=== PATIENT | male | born 1955 | race Hispanic/Latino ===

== ENCOUNTER 2019-05-31 09:47 | Inpatient (IN) | payer OTHER ==
[2019-05-31 10:39] LABS: #Basophils 0.1 thou/uL (0.0-0.2); #Eosinphils 0.3 thou/uL (0.0-0.7); #Lymphocytes 2.5 thou/uL (1.20-3.40); %Basophils 0.8 % (0.0-1.0); %Eosinophils 4.1 % (0.0-10.0); %Lymphocytes 31.5 % (21.0-51.0); %Monocytes 12.1 % (0.0-10.0); %Neutrophils 51.4 % (42.0-75.0); Hemoglobin 17.5 g/dL (14.0-18.0); Mean Corpuscular HGB CONC 34.4 g/dL (32.0-36.0); Mean Corpuscular Hemoglobin 34.4 pg (27.0-31.0); Mean Corpuscular Volume 99.9 fL (78.0-98.0); Mean Platelet Volume 6.8 fL (7.4-10.4); Platelet Count 339 thou/uL (130-400); RBC Distribution Width 11.8 % (11.5-14.5); Red Blood Cell (RBC) Count 5.08 mill/uL (4.70-6.10); White Blood Cell (WBC) Count 7.8 thou/uL (4.8-10.8)
[2019-05-31] MEDS ORDERED: Ondansetron PF 4 MG/2 ML Vial ONE (10:41)
[2019-05-31] MEDS ORDERED: Dexamethasone 20 MG/5 ML VIAL ONE (10:41)
[2019-05-31] MEDS ORDERED: PROPOFOL 200 MG/20 ML VIAL ONE (10:41)
[2019-05-31] MEDS ORDERED: Lidocaine 1% PF 5 ML VIAL ONE (10:41)
--- NOTE | 2019-05-31 10:47 | RAD ---
EXAM: XR Finger(s) Rt Min 2 View PROVIDED CLINICAL HISTORY: Pain, recent history of foreign body COMPARISON: None FINDINGS: There is soft tissue gas noted involving the dorsal aspect of the long digit distally in the region o f the nailbed. There is multifocal lucency involving the terminal tuft of the long digit. Some of this lucency appears somewhat linear in nature. Joint spaces appear preserved. Alignment appears nathen omic. IMPRESSION: Soft tissue gas and lytic changes involving the long digit distal phalanx region suspicious for soft tissue infection and osteomyelitis respectively. Given the somewhat linear nature of lucency, component of fracture cannot be excluded.
[2019-05-31 11:07] LABS: ALT (SGPT) 46 U/L (8-55); AST (SGOT) 45 U/L (5-34); Albumin 4.7 g/dL (3.4-4.8); Alkaline Phosphatase 84 U/L (40-110); Anion Gap 17 mmol/L (10-20); BUN (Urea Nitrogen) 9 mg/dL (8.4-25.7); Bilirubin, Total 0.6 mg/dL (0.2-1.2); Calc. Creatinine Clearance 0 mL/min (70-130); Calcium 9.6 mg/dL (7.8-10.44); Carbon Dioxide 21 mmol/L (23-31); Chloride 102 mmol/L (98-107); Estimated GFR-MDRD Greater than 90; Globulin 3.3 g/dL (2.4-3.5); Glucose 123 mg/dL (80-115); Potassium 4.6 mmol/L (3.5-5.1); Sodium 135 mmol/L (136-145)
[2019-05-31] MEDS ORDERED: Cefepime 2 GM VIAL ONE (11:07)
[2019-05-31] MEDS ORDERED: Adacel (T-DAP) 0.5 ML SYRINGE ONE (11:27)
[2019-05-31] MEDS ORDERED: Fentanyl 100 MCG/2 ML VIAL SLOW IVP PRN (13:37)
[2019-05-31] MEDS ORDERED: HYDROcodone/Acetaminophen 5/325 mg Tablet PO PRN (13:37)
[2019-05-31] MEDS ORDERED: traMADol HCl 50 MG TAB PO PRN (13:37)
[2019-05-31] MEDS ORDERED: Milk Of Magnesia 30 ML UDCUP PO PRN (13:37)
[2019-05-31] MEDS ORDERED: Ondansetron PF 4 MG/2 ML Vial IV PRN (13:37)
[2019-05-31] MEDS ORDERED: Communication Order-Pharmacy FS PRN ×2 (13:45→14:06)
[2019-05-31] MEDS ORDERED: Fentanyl 100 MCG/2 ML VIAL ONE (14:00)
[2019-05-31] MEDS ORDERED: Bupivacaine PF 0.5% 30 ML VIAL ONE (14:26)
[2019-05-31] MEDS ORDERED: Midazolam HCl 2 mg/2 ml Vial ONE (14:41)
[2019-05-31] MEDS ORDERED: Promethazine HCl 25 MG/ML VIAL SLOW IVP PRN (15:03)
[2019-05-31] MEDS ORDERED: Ondansetron HCl/PF 4 MG/2 ML Vial IVP PRN (15:03)
[2019-05-31] MEDS ORDERED: Promethazine HCl 25 MG/ML VIAL IM PRN (15:03)
--- NOTE | 2019-05-31 16:27 | CON ---
DATE OF CONSULTATION: CHIEF COMPLAINT: Right finger infection. HISTORY OF PRESENT ILLNESS: Mr. Alfaro is a 63-year-old male, who has developed an infection of his right long digit. He had a splinter in the end of the digit. This has progressively worsened. He has had infection for two weeks now. His tried to remove the splinter. He has not been on antibiotics. He presented for evaluation today. He has been having possible low-grade fevers at home, although he has not checked his temperature. Orthopedics was consulted after x-rays demonstrated subcutaneous gas and lytic areas of the distal phalanx. PAST MEDICAL HISTORY: The patient denies having diabetes. He denies active medical problems. PAST SURGICAL HISTORY: Previous knee surgery and cholecystectomy. SOCIAL HISTORY: The patient drinks alcohol every day. He also uses cigarettes every day. He denies drug use. REVIEW OF SYSTEMS: Positive for mild hand pain. Otherwise, negative 10-point review of systems. ALLERGIES: NO KNOWN DRUG ALLERGIES. MEDICATIONS: None. PHYSICAL EXAMINATION: VITAL SIGNS: Temperature is 98.5, pulse is 91, respiratory rate is 16, and blood pressure is 168/99. EXTREMITIES: The patient is right hand has obvious infection at the finger. He has erythema and enlargement of the digit past the DIP joint. There is purulent drainage when palpated. There is tenderness. There is warmth and erythema. He has poor sensation in the finger tip. HEENT: Normocephalic and atraumatic. RESPIRATORY: Breathing comfortably. ABDOMEN: Soft, nontender, and nondistended. CARDIOVASCULAR: Pulses palpable and regular. IMAGES: X-rays of the right hand demonstrate enlargement of the soft tissues about the long digit. He has gas in the subcutaneous tissues. There is possible lytic areas suggestive of osteomyelitis of the distal phalanx. IMPRESSION: Severe infection of the right hand, now chronic. PLAN: The patient at this point, will likely need to be in the hospital for several days for intravenous antibiotics. We will start vancomycin and Zosyn. I will take him to surgery today for irrigation and debridement of his finger. I will remove the nail and evacuate any purulent collection. I did describe to the patient that he may require amputation in the future. I would not plan to do this acutely, but if he worsens, the most reliable outcome will be shortening the finger. He is aware of this. He wants to try to salvage the finger if possible. He will be n.p.o. until after surgery. He will have pain control. We will monitor closely. Job ID: [id number]
[2019-05-31 16:33] VITALS: BMI 32.8
[2019-05-31] MEDS: Piperacillin/Tazobactam 3.375 GM in Sodium Chloride 0.9% 100 ML IVPB SCH ×2 (17:07→20:04)
[2019-05-31] MEDS ORDERED: FLU VACC QS2019-20(6MOS UP)/PF 60 MCG/0.5 ML SYRINGE IM ONE (17:45)
[2019-05-31] MEDS ORDERED: hydrALAZINE 20 MG/ML VIAL SLOW IVP PRN ×2 (17:59→18:28)
[2019-05-31] MEDS ORDERED: Nicotine 14 MG PATCH TOP SCH ×2 (18:00→18:30)
--- NOTE | 2019-05-31 20:19 | OP ---
DATE OF PROCEDURE: 05/31/2019 PROCEDURE PERFORMED: Irrigation and debridement of right middle finger injury with severe infection. PREOPERATIVE DIAGNOSIS: Right middle digit infection with possible underlying osteomyelitis and purulence. POSTOPERATIVE DIAGNOSIS: Right middle digit infection with possible underlying osteomyelitis and purulence. COMPLICATIONS: None. ESTIMATED BLOOD LOSS: Minimal. ANESTHESIA: General plus local. IMPLANTS: None. INDICATIONS: Mr. Alfaro is a 63-year-old male, who has had a splinter in his finger. This has become infected and purulent. He has evidence of necrosis. He has been indicated now for irrigation and debridement of the finger to eradicate infection and hopefully salvage his finger. He is at risk for further infection or amputation. DESCRIPTION OF PROCEDURE: Mr. Alfaro was identified in the preoperative holding area. His correct extremity was marked. He was carried to the operating room. He was positioned supine. General anesthesia was induced. A multidisciplinary time-out was performed. The right upper extremity was prepped and draped in sterile fashion. We began the procedure with elevating the patient's nail. The nail was removed. There was purulent material beneath the nail. There was some blistering of the skin as well. This was unroofed. We took deep cultures. We thoroughly irrigated with copious lavage. We debrided any nonviable tissue. There was no exposed bone. There was overlying tissue over the distal phalanx. We completed the surgery by thoroughly irrigating with a liter of lavage. We then placed a Xeroform and gauze dressing, and the patient was taken to the recovery room in good condition. Job ID: [id number]
[2019-05-31] MEDS ORDERED: Zolpidem Tartrate 5 MG TAB PO PRN (22:07)
[2019-05-31] MEDS: Vancomycin 1.5 GRAM/300 ML BAG 1.5 GM in Premix Bag 1 BAG IVPB SCH (22:12)
[2019-05-31] MEDS ORDERED: Vancomycin 1 GM in Premix Bag 1 BAG IVPB SCH (23:00)
[2019-05-31] MEDS ORDERED: Vancomycin HCl 1 GM in Sodium Chloride 0.9% 250 ML 300 ML IVPB SCH (23:00)
[2019-06-01] MEDS: Piperacillin/Tazobactam 3.375 GM in Sodium Chloride 0.9% 100 ML IVPB SCH ×4 (03:03→20:10)
[2019-06-01 05:21] LABS: #Lymphocytes 1.6 thou/uL (1.20-3.40); #Monocytes 0.7 thou/uL (0.11-0.59); #Neutrophils 5.9 thou/uL (1.40-6.50); %Basophils 0.4 % (0.0-1.0); %Eosinophils 0.4 % (0.0-10.0); %Monocytes 8.8 % (0.0-10.0); %Neutrophils 71.4 % (42.0-75.0); Hemoglobin 15.8 g/dL (14.0-18.0); Mean Corpuscular HGB CONC 34.7 g/dL (32.0-36.0); Mean Corpuscular Hemoglobin 34.9 pg (27.0-31.0); Mean Platelet Volume 6.9 fL (7.4-10.4); Platelet Count 303 thou/uL (130-400); RBC Distribution Width 11.8 % (11.5-14.5); Red Blood Cell (RBC) Count 4.52 mill/uL (4.70-6.10); White Blood Cell (WBC) Count 8.2 thou/uL (4.8-10.8)
[2019-06-01 10:58] LABS: Vancomycin, Trough 10.6 ug/mL
[2019-06-01] MEDS: Vancomycin 1.5 GRAM/300 ML BAG 1.5 GM in Premix Bag 1 BAG IVPB SCH ×3 (11:56→20:10)
[2019-06-01] MEDS ORDERED: Fentanyl 100 MCG/2 ML VIAL SLOW IVP PRN (17:29)
[2019-06-01] MEDS ORDERED: Milk Of Magnesia 30 ML UDCUP PO PRN (17:29)
[2019-06-01] MEDS ORDERED: Ondansetron PF 4 MG/2 ML Vial IV PRN (17:30)
[2019-06-01] MEDS ORDERED: traMADol HCl 50 MG TAB PO PRN (17:30)
[2019-06-01] MEDS ORDERED: Zolpidem Tartrate 5 MG TAB PO PRN (17:31)
[2019-06-01] MEDS ORDERED: hydrALAZINE 20 MG/ML VIAL SLOW IVP PRN (17:31)
[2019-06-01] MEDS: HYDROcodone/Acetaminophen 5/325 mg Tablet PO PRN (18:11)
[2019-06-01] MEDS ORDERED: Nicotine 14 MG PATCH TOP SCH (18:30)
[2019-06-02] MEDS: Piperacillin/Tazobactam 3.375 GM in Sodium Chloride 0.9% 100 ML IVPB SCH ×2 (01:41→08:51)
[2019-06-02] MEDS: Vancomycin 1.5 GRAM/300 ML BAG 1.5 GM in Premix Bag 1 BAG IVPB SCH (03:44)
[2019-06-02] MEDS: HYDROcodone/Acetaminophen 5/325 mg Tablet PO PRN (08:57)
[2019-06-02 11:19] VITALS: BP 156/91; TEMP 98.6
[2019-06-02 11:57] LABS: Vancomycin, Trough 21.5 ug/mL
[2019-06-02] MEDS ORDERED: Vancomycin HCl 1.25 GM in Sodium Chloride 0.9% 250 ML 250 ML IVPB SCH (12:00)
--- NOTE | 2019-06-04 05:35 | PQF ---
ANDERS GALEANA CHRISTOPHER E MD [id number] [facility] [address]- [id number] CLINICAL DOCUMENTATION CLARIFICATION FORM: POST DISCHARGE Addendum to original discharge summary date: ____ Late entry note date: __ DATE: 05/31/2019 ATTN:BRANT JOSE MD Please exercise your independent, professional judgment in responding to the clarification form. Clinical indicators are provided on the bottom of this form for your review Please check appropriate box(s): [ x ] Excisional Debridement: [ x ] Excised [ ] Cut away [ ] Other: Depth / layer: (deepest layer of debridement): [x ] Skin[ x ] SubQ Tissue [x ] Fascia [ ] Muscle [ ] Tendon [ ] Bone Appearance of wound: (e.g., down to fresh bleeding tissue, etc.) Margins: (please specify): / x __ ___ x Instruments used: [ ] Scissors [ ] Scalpel [ ] Curette [ ] Soft tissue clipper [ ] Other: [ ] Non-excisional Debridement: (Removal by flushing, brushing, chemical, or washing) Depth / layer: (deepest layer of debridement): [ ] Skin[ ] Subcutaneous [ ] Fascia [ ] Muscle [ ] Tendon [ ] Bone [ ] Escharectomy [ ] Other procedure diagnosis [ ] Unable to determine For continuity of documentation, please document condition throughout progress notes and discharge summary. Thank You. CLINICAL INDICATORS - SIGNS / SYMPTOMS / LABS - The nail was removed, there was purulent material beneath the nail--OP report , 05/30, BRANT JOSE MD - There was some blistering of the skin as well- -OP report, 05/30, BRANT JOSE MD - we took deep cultures, we thoroughly irrigated with copious lavage--OP report , 05/30, BRANT JOSE MD - We derided any nonviable tissue, there was no exposed bone--OP report, 05/30, BRANT JOSE MD - Right middle digit infection with possible underlying osteomyelitis and purulence-OP report, 05/30, BRANT JOSE MD RISK FACTORS - Right middle digit infection- OP report, 05/30, BRANT JOSE MD TREATMENTS: -Xeroform and gauze dressing- -OP report, 05/30, BRANT JOSE MD -Vancomycin.IV-MAY, 05/30 (This form is maintained as a part of the permanent medical record) 2014 [email or web address] All Rights Reserved Isaac [email or web address]
== END 2019-06-02 12:45 | disposition home or self-care (01) | DRG 514 ==
LOC: ERS 09:47 → SDC 13:37 → SURG B 13:38
PROVIDERS: ADMIT Orthopaedic Surgery; ATTEND Orthopaedic Surgery
PROC: 0JBJ0ZZ Excision of Right Hand Subcutaneous Tissue and Fascia, Open Approach (ICD-10-PCS; principal; 2019-05-31)
DX: M86.8X4 Other osteomyelitis, hand (principal); F17.210 Nicotine dependence, cigarettes, uncomplicated; G47.33 Obstructive sleep apnea (adult) (pediatric); Z90.49 Acquired absence of other specified parts of digestive tract
CPT/HCPCS: 36415; 80053; 80202; 83605; 85025; 85652; 86140; 87070; 87205; 90471; 90686; 90715; 90732; 96365; 96367; G0008; G0009; J0360; J0692; J1100; J2001; J2250; J2405; J2543; J2704; J3010; J3370; J3490; J7050; S0020